=== PATIENT | male | born 1975 | race Caucasian/White ===

== ENCOUNTER → 2020-06-15 07:24 | Outpatient (CLI) | payer BC, SELFPAY ==
--- NOTE | ~2020-06-15 | US_ITS ---
US right upper quadrant INDICATION: Abdominal pain PROCEDURE: Realtime right upper abdominal ultrasound. COMPARISON: No prior studies for comparison. FINDINGS: The pancreas is normal without focal mass or pancreatic ductal dilation. Liver echotexture is normal without focal mass or intrahepatic biliary dilatation. There is normal directional flow i n the portal vein. The gallbladder is normal without stones, gallbladder wall thickening or pericholecystic fluid. Comm on bile duct measures 3 mm. No sonographic Ramos's sign. Right renal echotexture is unremarkable. IMPRESSION: 1: Normal limited abdominal ultrasound. Reviewed, dictated and finalized at location A. [employer]
== END ==
PROVIDERS: PCP Family Medicine; Visit Provider Family Medicine
DX: R10.9 Unspecified abdominal pain (principal)
CPT/HCPCS: 76705

== ENCOUNTER 2022-12-18 09:15 | Outpatient (CLI) | payer BC, SELFPAY ==
--- NOTE | 2023-01-04 19:54 | WPDHOMESLEEP ---
Sleep Study - Home Unattended Date of Study: 12/18/22 Ordering Provider: Singh Lopez MD Interpreting Provider: Brisa Moscoso MD Home Sleep Study Type: Watch PAT Height: 1.91 m Weight: 122.47 kg Body Mass Index: 33.7 Neck Circumference (inches): 17.75 [place]: 3 Reason for Sleep Study Daytime hypersomnia Sleep History Ferdinand Arthur is a 47-year-old man male with history of obesity, hypertension and GERD. 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 He had a home sleep test for evaluation of hypersomnia and restless sleep. He never awakens from sleep feeling short of breath. He never awakens at night with heartburn, belching or coughing, takes omeprazole. He frequently snores and occasionally snores loudly enough for others to complain. He occasionally has trouble sleeping when he has a cold. He never wakes up gasping for breath during the night. He never has breathing problems at night. He occasionally sweats excessively at night. He rarely falls asleep during the day. He does not fall asleep involuntarily and never falls asleep while driving. He never notices his heart pounding or beating irregularly during the night. He never experiences loss of muscle tone with strong emotion. He never feels paralyzed on waking or falling asleep. He does not experience vivid dreams upon waking or falling asleep. He never feels afraid of going to sleep. He never has nightmares. He never recalls his dreams. He occasionally has thoughts racing through his mind. He rarely feels sad or depressed. He rarely feels anxiety or worry about things. He occasionally notices parts of his body jerk. He never kicks during the night. He never feels crawling or aching feelings in his legs. He never feels leg pain at night. He does not grind his teeth during sleep and or wake with morning jaw pain. He rarely feels bothered by pain during the day and is never awakened by pain during the night. He occasionally wakes up feeling stiff in the morning and rarely wakes up feeling sore and achy in the morning with pain in his neck, spine, or joints. Normal bedtime is around 9 or 10pm on the weekends and varies on the weekdays due to shift work, usually falling asleep quickly some nights, other nights up to 30 to 50 minutes. He typically gets about 5 to 7 hours of sleep per night. His wake up time is around 6 or 7am on the weekends and varies on weekdays due to shift work. He typically wakes up between 1 to 3 times per night, awake for just a few minutes each. He occasionally watches television before falling asleep. Habits: Former tobacco smoker. Drinks about several caffeinated beverages per day. No alcohol or recreational substances. [facility]LY [facility] Past Medical History Medical History Abdominal pain Acute non-recurrent maxillary sinusitis BMI 37.0-37.9, adult BMI 38.0-38.9,adult Body mass index (BMI) 40.0-44.9, adult (02/24/19) Candidiasis (~08/02/22) perineum, midline [place] hemangioma (~08/02/22) scrotum Chewing tobacco nicotine dependence, uncomplicated Conjunctivitis, left eye COVID-19 (~05/05/20) Encounter for prostate cancer screening PSA 0.4 on 03/28/2021. PSA 0.57 on 04/03/2022. Gout of knee uric acid 6.8 on 03/28/2021. uric acid 5.8 on 04/03/2022. Hemorrhoid (~07/29/22) Hypersomnia Muscle cramp, nocturnal Magnesium 1.9, potassium 4.5 on 04/03/2022. Obesity (BMI 35.0-39.9 without comorbidity) Otitis media of left ear Seasonal allergies Family History Family History Father Diabetes mellitus Grandparent Diabetes mellitus Hypertension Mother Patient's mother is in good health Sibling Patient's sister is in good health Patient's brother is in good health Social History Social History Smoking status: Never smoker ( chews tobacco about 3/4 of a can daily.) Alcohol intake:
[2023-01-04 20:09] VITALS: BMI 33.7
== END 2022-12-19 12:39 | disposition home or self-care (01) ==
LOC: ANHCSM 09:16
PROVIDERS: PCP Family Medicine; Visit Provider Family Medicine
DX: G47.10 Hypersomnia, unspecified (principal); G47.33 Obstructive sleep apnea (adult) (pediatric)
CPT/HCPCS: 95800

== ENCOUNTER 2023-10-16 11:37 | Emergency (ER) | payer BC, SELFPAY ==
[2023-10-16] VITALS (10 sets, daily range): BP systolic 124–137; BP diastolic 87–92; PULSE 82–94; RESP 16–17; TEMP 36.2; O2SAT 93–97
--- NOTE | ~2023-10-16 | CT_ITS ---
EXAMINATION: CT abdomen pelvis w con DATE: 10/16/2023 13:38 INDICATION: Left lower quadrant abdominal pain TECHNIQUE: Computed tomography (CT) of the abdomen and pelvis was performed without intravenous contr ast. Automated exposure control and iterative reconstruction technique were employed. The dose-length product was 1612.46 mGy-cm. COMPARISON: None FINDINGS: Lung bases are clear. Heart size is normal. No pericardial or pleural effusion. Liver, gallbladder, p ancreas, bilateral adrenal glands and kidneys are normal. Splenomegaly measuring 17 cm in craniocauda l length. Small fat-containing umbilical hernia. There is inflammatory stranding surrounding a divert iculum at the junction of the descending and sigmoid colon with some associated mild focal associated bowel wall thickening. Remainder of the bowels are normal including the appendix with no obstruction . Partially decompressed bladder is unremarkable. Very small fat-containing right inguinal hernia. No free intraperitoneal gas or fluid. No pathologically enlarged abdominal or pelvic lymphadenopathy. S evere lumbosacral spondylosis with mild spondylosis more cephalad lumbar and lower thoracic spine. IMPRESSION: 1. Radiographic uncomplicated diverticular colitis the junction of the descending and sigmoid colon. 2. Nonspecific splenomegaly. 3. Small fat-containing umbilical and right inguinal hernias. Reviewed, dictated and finalized at location A. IMPRESSION: 1. Radiographic uncomplicated diverticular colitis the junction of the descendi ng and sigmoid colon. 2. Nonspecific splenomegaly. 3. Small fat-containing umbilical and right inguinal hernias.
[2023-10-16 12:03] LABS: Basophils Percent Auto 0.3 % (0.2-1.2); Eosinophils Absolute Auto 0.1 K/mm3 (0-0.3); Eosinophils Percent Auto 0.8 % (0-4.4); Hematocrit 46.9 % (42.0-52.0); Hemoglobin 15.5 g/dL (14.0-18.0); Immature Granulocyte Absolute 0.04 K/mm3 (0.00-0.031); Immature Granulocyte Percent A 0.3 % (0-0.5); Lymphocytes Absolute Auto 1.86 K/mm3 (0.9-3.2); Mean Corpuscular Hemoglobin 30.2 pg (26-34); Mean Corpuscular Volume 91.2 fl (80-100); Mean Platelet Volume 9.2 fl (7.4-10.4); Monocytes Absolute Auto 0.9 K/mm3 (0.1-0.6); Monocytes Percent Auto 7.8 % (2.6-8.5); Neutrophils Absolute Auto 8.7 K/mm3 (1.3-6.7); Neutrophils Percent Auto 74.8 % (45.5-73.1); Platelet Count Result 251 k/mm3 (150-375); Red Blood Count 5.14 M/mm3 (4.6-6.20); Red Cell Distribution Width 12.6 % (11.5-14.5); White Blood Count 11.7 K/mm3 (4.5-10.0)
--- NOTE | 2023-10-16 12:04 | ED.ABDPAIN ---
HPI - Abdominal Pain General Chief Complaint: Abdominal Pain Stated Complaint: LLQ pain Time Seen by Provider: 10/16/23 11:54 Source: patient Mode of arrival: ambulatory Limitations: no limitations History of Present Illness HPI narrative: This is a 47-year-old male who presents to the ED with chief complaint of left lower quadrant pain beginning yesterday. Reports the pain does not radiate. It is sharp pain that is relatively constant. Reports the last bowel movement was yesterday and was normal. Patient reports that the pain seems to come and go. He states that the pain does increase with hitting bumps in the road while driving. Endorses chills last night but no recorded fevers. Denies nausea, vomiting or any significant problems with bowel movements. Denies any urinary symptoms. Related Data Allergies Allergy/AdvReac Type Severity Reaction Status Date / Time No Known Allergies Allergy Unverified 11/08/22 08:34 Review of Systems Review of Systems: All systems as dictated in [facility] Past Medical History Medical History (Updated 10/17/23 @ 00:01 by Zoila Stout) Abdominal pain Acute non-recurrent maxillary sinusitis BMI 34.0-34.9,adult BMI 37.0-37.9, adult BMI 38.0-38.9,adult Body mass index (BMI) 40.0-44.9, adult (02/24/19) Candidiasis (~08/02/22) perineum, midline [place] hemangioma (~08/02/22) scrotum Chewing tobacco nicotine dependence, uncomplicated 1/2-1 can daily Conjunctivitis, left eye COVID-19 (~05/05/20) Encounter for prostate cancer screening PSA 0.4 on 03/28/2021. PSA 0.57 on 04/03/2022. PSA normal at 0.76 on 05/01/2023. Gout of knee uric acid 6.8 on 03/28/2021. uric acid 5.8 on 04/03/2022. Uric acid 4.8 on 05/01/2023. Hemorrhoid (~07/29/22) Hypersomnia Muscle cramp, nocturnal Magnesium 1.9, potassium 4.5 on 04/03/2022. magnesium normal at 2.1 on 05/01/2023. Obesity (BMI 30.0-34.9) Obesity (BMI 35.0-39.9 without comorbidity) Otitis media of left ear Seasonal allergies Family History Family History Father Diabetes mellitus Grandparent Diabetes mellitus Hypertension Mother Patient's mother is in good health Sibling Patient's sister is in good health Patient's brother is in good health Social History Social History Smoking status: Never smoker ( chews tobacco about 3/4 of a can daily.) Alcohol intake: never Substance use: never Substance use type: does not use Lack of Transportation: No Lack of Food: Never True Current Housing: I Have Housing Concerned About Future Housing: No Difficulty Paying Gas/Electric Bills: No Difficulty Paying for Meds: No Currently Unemployed: No Education: High School Diploma/GED Difficulty w/ Childcare or Family Care: No Exam Narrative: GENERAL: Well-appearing, well-nourished, and in no acute distress. HEAD: Normocephalic, atraumatic. EYES: PERRLA and EOMI. ENT: Nares clear, no rhinorrhea or epistaxis. Mucous membranes moist. Oropharynx without tonsillar hypertrophy exudate or other lesions. NECK: Supple. No adenopathy or masses. CHEST: No respiratory distress. Clear to auscultation. No wheezes rales or rhonchi HEART: Regular rate and rhythm. No murmur heard. Normal peripheral pulses. ABDOMEN: Left lower quadrant present. Soft, otherwise nontender, nondistended, normal active bowel sounds. No rigidity or guarding MSK: Normal range of motion. No edema. SKIN: Warm, dry, no rash. NEURO: Alert and oriented x3. No focal deficits. PSYCH: Normal mood and affect. Course Vital Signs Vital signs: Vital Signs Temperature 97.1 F L 10/16/23 11:42 Pulse Rate 94 10/16/23 11:42 Respiratory Rate 16 10/16/23 11:42 Blood Pressure 124/88 10/16/23 11:42 Pulse Oximetry 97 10/16/23 11:42 Temperature 97.1 F L 10/16/23 11:42 Pulse Rate 82 10/16/23 14:27 Respira
[2023-10-16 12:14] LABS: Alanine Aminotransferase 27 U/L (6-50); Albumin Level 4.9 g/dL (3.5-5.1); Alkaline Phosphatase 87 U/L (38-126); Anion Gap 9 mmol/L (4-12); Aspartate Amino Transferase 22 U/L (17-59); Blood Urea Nitrogen 17 mg/dL (9-20); Calcium 9.8 mg/dL (8.4-10.2); Carbon Dioxide 25 mmol/L (22-30); Chloride 107 mmol/L (98-107); Estimated CRCL calculation 118 ml/min; Estimated Glomerular Filt Rate > 60; Glucose 115 mg/dL (65-110); Lipase 59 U/L (23-300); Sodium 141 mmol/L (137-145)
[2023-10-16 13:15] LABS: Appearance Urine Clear (Clear); Bilirubin Urine Negative (Negative); Blood Urine Negative (Negative); Color Urine Dark Yellow (Yellow); Glucose Urine UA Negative (Negative); Ketones Urine Trace mg/dL (Negative); Leukocyte Esterase Ur Negative LEU/UL (Negative); Nitrate Urine Negative (Negative); Protein Urine Negative (Negative); Specific Grav Ur 1.028 (1.001-1.035)
[2023-10-16 13:23] LABS: Add Urine Microscopic? NO
== END 2023-10-16 14:28 | disposition home or self-care (01) ==
PROVIDERS: Emergency Medicine; Emergency Provider Physician Assistant; PCP Family Medicine
DX: K57.32 Diverticulitis of large intestine without perforation or abscess without bleeding (principal); M10.9 Gout, unspecified; E66.9 Obesity, unspecified; Z68.34 Body mass index [BMI] 34.0-34.9, adult; F17.220 Nicotine dependence, chewing tobacco, uncomplicated; Z86.16 Personal history of COVID-19; R16.1 Splenomegaly, not elsewhere classified; K42.9 Umbilical hernia without obstruction or gangrene; K40.90 Unilateral inguinal hernia, without obstruction or gangrene, not specified as recurrent
CPT/HCPCS: 36415; 74177; 80053; 81003; 83690; 85025; 99284; Q9967

== ENCOUNTER 2024-07-18 07:17 | Outpatient (CLI) | payer BC, SELFPAY ==
[2024-07-18 07:47] LABS: Add Urine Microscopic? NO; Appearance Urine Clear (Clear); Bilirubin Urine Negative (Negative); Blood Urine Negative (Negative); Color Urine Yellow (Yellow); Glucose Urine UA Negative (Negative); Ketones Urine Negative (Negative); Leukocyte Esterase Ur Negative LEU/UL (Negative); Nitrate Urine Negative (Negative); Protein Urine Negative (Negative); Specific Grav Ur 1.021 (1.001-1.035); Urobilinogen Urine 0.2 mg/dL (<2.0)
[2024-07-18 07:51] LABS: Basophils Percent Auto 0.5 % (0.2-1.2); Eosinophils Absolute Auto 0.2 K/mm3 (0-0.3); Eosinophils Percent Auto 2.9 % (0-4.4); Hematocrit 43.1 % (42.0-52.0); Hemoglobin 14.5 g/dL (14.0-18.0); Immature Granulocyte Absolute 0.02 K/mm3 (0.00-0.031); Immature Granulocyte Percent A 0.3 % (0-0.5); Lymphocytes Absolute Auto 1.42 K/mm3 (0.9-3.2); Lymphocytes Percent Auto 22.9 % (18.3-44.2); Mean Corpuscular HGB Conc 33.6 g/dl (32-36); Mean Corpuscular Hemoglobin 30.7 pg (26-34); Mean Corpuscular Volume 91.1 fl (80-100); Mean Platelet Volume 9.3 fl (7.4-10.4); Monocytes Absolute Auto 0.4 K/mm3 (0.1-0.6); Monocytes Percent Auto 6.6 % (2.6-8.5); Neutrophils Absolute Auto 4.1 K/mm3 (1.3-6.7); Neutrophils Percent Auto 66.8 % (45.5-73.1); Platelet Count Result 220 k/mm3 (150-375); Red Blood Count 4.73 M/mm3 (4.6-6.20); Red Cell Distribution Width 12.6 % (11.5-14.5); White Blood Count 6.2 K/mm3 (4.5-10.0)
[2024-07-18 08:04] LABS: Alanine Aminotransferase 32 U/L (6-50); Albumin Level 4.6 g/dL (3.5-5.1); Alkaline Phosphatase 90 U/L (38-126); Anion Gap 9 mmol/L (4-12); Aspartate Amino Transferase 27 U/L (17-59); Bilirubin,Total 0.5 mg/dL (0.2-1.3); Blood Urea Nitrogen 25 mg/dL (9-20); Calcium 9.4 mg/dL (8.4-10.2); Carbon Dioxide 29 mmol/L (22-30); Chloride 103 mmol/L (98-107); Cholesterol 164 mg/dL (0-200); Estimated Glomerular Filt Rate > 60; Glucose 106 mg/dL (65-110); HDL Direct 36 mg/dL; Potassium 4.4 mmol/L (3.4-5.0); Sodium 141 mmol/L (137-145); Triglycerides 195 mg/dL (<150)
[2024-07-18 08:15] LABS: LDL Cholesterol Direct 81 mg/dL
[2024-07-18 08:25] LABS: Prostate Specific Antigen 0.5 ng/mL (< OR = 4.0)
[2024-07-18 09:40] LABS: Hemoglobin A1C 5.2 % (<5.7)
== END 2024-07-18 07:18 | disposition home or self-care (01) ==
LOC: ANHLAB 07:17
PROVIDERS: PCP Family Medicine; Visit Provider Family Medicine
DX: Z12.5 Encounter for screening for malignant neoplasm of prostate (principal); E78.2 Mixed hyperlipidemia; I10 Essential (primary) hypertension; G47.33 Obstructive sleep apnea (adult) (pediatric); E66.9 Obesity, unspecified; M1A.0690 Idiopathic chronic gout, unspecified knee, without tophus (tophi)
CPT/HCPCS: 36415; 80053; 80061; 81003; 83036; 84153; 84443; 84550; 85025; G0103

== ENCOUNTER 2024-10-28 00:56 | Day surgery (SDC) | payer BC, SELFPAY ==
[2024-10-22 11:08] VITALS: BMI 31.3
[2024-10-28 08:47] VITALS: BP 129/83; PULSE 71; RESP 20; TEMP 36.2; O2SAT 99
[2024-10-28] MEDS: LACTATED RINGERS 1,000 ML 150 ML IV CONT (08:53)
--- NOTE | 2024-10-28 08:58 | WPDANESEPPF ---
Anes - Initial Pre Proc Eval Procedure: Operation Date: 10/28/24 10:00 Proposed Procedures p Screening Colonoscopy - Dion Marino MD Date/Time: 10/28/24 08:58 Surgeon: Dion Marino MD Pre Op Diagnosis: Encounter for screening for malignant neoplasm of Patient Data Age: 49 Gender: M Height: 1.91 m Weight: 112.8 kg Last Vital Signs Temp 36.2 C L 10/28/24 08:47 Pulse 71 10/28/24 08:47 Resp 20 10/28/24 08:47 BP 129/83 10/28/24 08:47 Pulse Ox 99 10/28/24 08:47 O2 Del Method Room Air 10/28/24 08:47 Allergies Allergy/AdvReac Type Severity Reaction Status Date / Time No Known Allergies Allergy Verified 10/28/24 08:43 Home Medications Medication Instructions Recorded Confirmed Type tadalafil 20 mg tablet 20 mg PO DAILY PRN sexual activity 12/11/23 10/22/24 Rx #90 tabs amlodipine 5 mg tablet 5 mg PO DAILY #90 tabs 05/22/24 10/28/24 Rx omeprazole 20 mg capsule,delayed 20 mg PO DAILY #90 caps 05/26/24 10/28/24 Rx release allopurinol 300 mg tablet 300 mg PO DAILY #90 tabs 06/24/24 10/28/24 Rx sodium sul 1.479 gram-potas ch See Rx Instructions PO PER PKG DIR 08/15/24 10/28/24 Rx 0.188 gram-magnes sul 0.225 gram #24 tabs tablet (Sutab) Patient hx anesthesia problems: none Family hx anesthesia problems: none Results Review: All pre-operative results and documents have been reviewed as part of the pre-operative evaluation. [facility] Past Medical History Medical History (Updated 07/21/24 @ 08:43 by Singh Lopez MD) BMI 33.0-33.9,adult Mixed hyperlipidemia (07/18/24) cholesterol 164, triglycerides 195, HDL 36, LDL 81 on 07/18/2024. Elevated fasting glucose (07/18/24) fasting glucose 106 with hemoglobin A1c 5.2 on 07/18/2024 with GFR greater than 60. Colon cancer screening Acute diverticulitis (10/15/23) acute sigmoid diverticulitis with symptoms starting 10/15/2023 with ER visit 10/16/2023. Diarrhea (~10/2023) BMI 34.0-34.9,adult Obesity (BMI 30.0-34.9) Seasonal allergies Otitis media of left ear [place] hemangioma (~08/02/22) scrotum Candidiasis (~08/02/22) perineum, midline Hemorrhoid (~07/29/22) Chewing tobacco nicotine dependence, uncomplicated 1/2-1 can daily . No tobacco products. Does use and nicotine pouches. Hypersomnia Obesity (BMI 35.0-39.9 without comorbidity) Muscle cramp, nocturnal Magnesium 1.9, potassium 4.5 on 04/03/2022. magnesium normal at 2.1 on 05/01/2023. BMI 38.0-38.9,adult Conjunctivitis, left eye BMI 37.0-37.9, adult COVID-19 (~05/05/20) Abdominal pain Acute non-recurrent maxillary sinusitis Encounter for prostate cancer screening PSA 0.4 on 03/28/2021. PSA 0.57 on 04/03/2022. PSA normal at 0.76 on 05/01/2023. PSA 0.5 on 07/18/2024. Gout of knee uric acid 6.8 on 03/28/2021. uric acid 5.8 on 04/03/2022. Uric acid 4.8 on 05/01/2023. Uric acid 7.0 on 07/16/2024. Body mass index (BMI) 40.0-44.9, adult (02/24/19) History of alcohol abuse abstain Family History Family History Father Diabetes mellitus Grandparent Diabetes mellitus Hypertension Mother Patient's mother is in good health Sibling Patient's sister is in good health Patient's brother is in good health Social History Social History Smoking packs per day: 0.5 Smoking cigarettes per day: 10.0 Years smoked: 7 Smoking pack-years: 3.50 Smoking status: Former smoker Tobacco type: cigarettes and smokeless tobacco Smokeless tobacco user: chewing tobacco Alcohol intake: never Substance use: never Substance use type: does not use Lack of Transportation: No Lack of Food: Never True Current Housing: I Have Housing Concerned About Future Housing: No Difficulty Paying Gas/Electric Bills: No Difficulty Paying for Meds: No Currently Unemployed: No Education: High School Diploma/GED Difficulty w/ Childcare or Family Care: No Living arrangements: with family Spiritual care concerns: No Anes - Eval Final PreProcedure Day of Procedure 10/28/24 08:58 Patient weight: obese Heart: regular rate and rhythm Lungs: clear to auscultation Airway: Mallampati scale class III Neurological: alert and oriented Last oral intake: >/= 8 hours ASA classification: III Emergent: no Anesthetic plan: proceed Anesthesia type and monitoring: general GIVS and standard monitoring Results Review: All pre-operative results and documents have been reviewed as part of the pre-operative evaluation. Informed Consent: The patient's anesthetic plan and its attendant risks and benefits were discussed with the patient/family/POA. Questions were solicited and answers provided to the satisfaction of the patient/family/POA.
--- NOTE | 2024-10-28 09:13 | PM.HPGS ---
History of Present Illness History of Present Illness Consent: Risks, benefits, and alternatives have been discussed and questions answered. Patient agrees to proceed with procedure. Chief complaint: Encounter for screening for malignant neoplasm of Narrative: Ferdinand Arthur is a 49 year old male here for first screening colonoscopy Review of Systems Review of Systems: All systems reviewed & are unremarkable except as noted in HPI and below PMFSH Past Medical History Medical History (Updated 07/21/24 @ 08:43 by Singh Lopez MD) BMI 33.0-33.9,adult Mixed hyperlipidemia (07/18/24) cholesterol 164, triglycerides 195, HDL 36, LDL 81 on 07/18/2024. Elevated fasting glucose (07/18/24) fasting glucose 106 with hemoglobin A1c 5.2 on 07/18/2024 with GFR greater than 60. Colon cancer screening Acute diverticulitis (10/15/23) acute sigmoid diverticulitis with symptoms starting 10/15/2023 with ER visit 10/16/2023. Diarrhea (~10/2023) BMI 34.0-34.9,adult Obesity (BMI 30.0-34.9) Seasonal allergies Otitis media of left ear [place] hemangioma (~08/02/22) scrotum Candidiasis (~08/02/22) perineum, midline Hemorrhoid (~07/29/22) Chewing tobacco nicotine dependence, uncomplicated 1/2-1 can daily . No tobacco products. Does use and nicotine pouches. Hypersomnia Obesity (BMI 35.0-39.9 without comorbidity) Muscle cramp, nocturnal Magnesium 1.9, potassium 4.5 on 04/03/2022. magnesium normal at 2.1 on 05/01/2023. BMI 38.0-38.9,adult Conjunctivitis, left eye BMI 37.0-37.9, adult COVID-19 (~05/05/20) Abdominal pain Acute non-recurrent maxillary sinusitis Encounter for prostate cancer screening PSA 0.4 on 03/28/2021. PSA 0.57 on 04/03/2022. PSA normal at 0.76 on 05/01/2023. PSA 0.5 on 07/18/2024. Gout of knee uric acid 6.8 on 03/28/2021. uric acid 5.8 on 04/03/2022. Uric acid 4.8 on 05/01/2023. Uric acid 7.0 on 07/16/2024. Body mass index (BMI) 40.0-44.9, adult (02/24/19) History of alcohol abuse abstain Family History Family History Father Diabetes mellitus Grandparent Diabetes mellitus Hypertension Mother Patient's mother is in good health Sibling Patient's sister is in good health Patient's brother is in good health Social History Social History Smoking packs per day: 0.5 Smoking cigarettes per day: 10.0 Years smoked: 7 Smoking pack-years: 3.50 Smoking status: Former smoker Tobacco type: cigarettes and smokeless tobacco Smokeless tobacco user: chewing tobacco Alcohol intake: never Substance use: never Substance use type: does not use Lack of Transportation: No Lack of Food: Never True Current Housing: I Have Housing Concerned About Future Housing: No Difficulty Paying Gas/Electric Bills: No Difficulty Paying for Meds: No Currently Unemployed: No Education: High School Diploma/GED Difficulty w/ Childcare or Family Care: No Living arrangements: with family Spiritual care concerns: No Meds Home Medications and Allergies Home Medications Medication Instructions Recorded Confirmed Type tadalafil 20 mg tablet 20 mg PO DAILY PRN sexual activity 12/11/23 10/22/24 Rx #90 tabs amlodipine 5 mg tablet 5 mg PO DAILY #90 tabs 05/22/24 10/28/24 Rx omeprazole 20 mg capsule,delayed 20 mg PO DAILY #90 caps 05/26/24 10/28/24 Rx release allopurinol 300 mg tablet 300 mg PO DAILY #90 tabs 06/24/24 10/28/24 Rx sodium sul 1.479 gram-potas ch See Rx Instructions PO PER PKG DIR 08/15/24 10/28/24 Rx 0.188 gram-magnes sul 0.225 gram #24 tabs tablet (Sutab) Allergies Allergy/AdvReac Type Severity Reaction Status Date / Time No Known Allergies Allergy Verified 10/28/24 08:43 Vital Signs Vital Signs - 24 hr 10/28/24 08:47 Temperature 97.2 F L Pulse Rate 71 Respiratory Rate 20 Blood Pressure 129/83 Pulse Oximetry 99 Oxygen Delivery Room Air Exam Const: General: comfortable and no acute distress HENMT: Face/Nose/Sinus: Normal nares present Eyes: General: appearance normal, both eyes and all related structures Neck: Neck: no JVD Resp: Auscultation: clear to auscultation bilaterally Cardio: Rate: regular rate Rhythm: regular rhythm GI: Inspection: non-distended GI Palp: Yes Soft to palpation Skin: General skin exam: normal color Neuro: General: gait normal Speech: normal speech Extrem: General: normal to inspection Psych: Mental Status: mental status grossly normal Assessment and Plan Assessment and plan (1) Colon cancer screening: Code(s): Z12.11 - Encounter for screening for malignant neoplasm of colon Status: Acute Assessment and Plan: colonoscopy
[2024-10-28 09:25] VITALS: BP 100/60; PULSE 63; RESP 18; O2SAT 99
[2024-10-28 09:35] VITALS: BP 111/74; PULSE 59; RESP 18; O2SAT 100
[2024-10-28 09:45] VITALS: BP 141/79; PULSE 60; RESP 18; O2SAT 100
== END 2024-10-28 09:49 | disposition home or self-care (01) ==
PROVIDERS: PCP Family Medicine; Referring Provider Family Medicine; Visit Provider Internal Medicine Gastroenterology
PROC: 0DJD8ZZ Inspection of Lower Intestinal Tract, Via Natural or Artificial Opening Endoscopic (ICD-10-PCS; CPT 45378; principal; 2024-10-28 10:00)
DX: Z12.11 Encounter for screening for malignant neoplasm of colon (principal); K63.5 Polyp of colon; K57.30 Diverticulosis of large intestine without perforation or abscess without bleeding; F17.220 Nicotine dependence, chewing tobacco, uncomplicated; E66.9 Obesity, unspecified; Z68.31 Body mass index [BMI] 31.0-31.9, adult
CPT/HCPCS: 45380; 88305; J2704; J7120

== ENCOUNTER 2025-04-08 07:53 | Outpatient (CLI) | payer BC, SELFPAY ==
[2025-04-08 09:48] LABS: Hemoglobin A1C 5.0 % (<5.7)
[2025-04-08 09:51] LABS: Alanine Aminotransferase 27 U/L (6-50); Albumin Level 4.5 g/dL (3.5-5.1); Alkaline Phosphatase 79 U/L (38-126); Anion Gap 8 mmol/L (4-12); Aspartate Amino Transferase 37 U/L (17-59); Bilirubin,Total 0.4 mg/dL (0.2-1.3); Blood Urea Nitrogen 22 mg/dL (9-20); Calcium 9.1 mg/dL (8.4-10.2); Carbon Dioxide 30 mmol/L (22-30); Chloride 102 mmol/L (98-107); Cholesterol 139 mg/dL (0-200); Estimated Glomerular Filt Rate > 60; Glucose 107 mg/dL (65-110); HDL Direct 39 mg/dL; Magnesium 2.1 mg/dL (1.6-2.3); Potassium 4.1 mmol/L (3.4-5.0); Sodium 140 mmol/L (137-145); Total Protein 7.6 g/dL (6.3-8.2); Triglycerides 89 mg/dL (<150); Uric Acid 5.5 mg/dL (3.5-8.5)
== END 2025-04-08 07:54 | disposition home or self-care (01) ==
LOC: ANHLAB 07:55
PROVIDERS: PCP Family Medicine; Visit Provider Family Medicine
DX: M1A.0690 Idiopathic chronic gout, unspecified knee, without tophus (tophi) (principal); E78.2 Mixed hyperlipidemia; R25.2 Cramp and spasm; R73.01 Impaired fasting glucose
CPT/HCPCS: 36415; 80053; 80061; 83036; 83735; 84550